=== PATIENT | female | born 1980 | race Caucasian/White ===

== ENCOUNTER 2018-06-26 07:52 | Outpatient (CLI) | payer OTHER ==
[~2018-06-26 07:52] MED LIST: HUMALOG; LANTUS
== END 2018-06-26 09:07 | disposition home or self-care (01) ==
LOC: LAB 07:52
DX: E11.00 Type 2 diabetes mellitus with hyperosmolarity without nonketotic hyperglycemic-hyperosmolar coma (NKHHC) (principal)

== ENCOUNTER → 2018-06-29 | Day surgery (SDC) | payer OTHER | END | disposition home or self-care (01) | LOC: CIR.AMB 05:49 | DX: N80.8 Other endometriosis (principal); N73.6 Female pelvic peritoneal adhesions (postinfective); Z30.2 Encounter for sterilization ==

== ENCOUNTER 2018-08-17 06:19 | Day surgery (SDC) | payer OTHER | END 2018-08-17 17:05 | disposition home or self-care (01) | LOC: CIR.AMB 06:19 | DX: D06.7 Carcinoma in situ of other parts of cervix (principal) ==

== ENCOUNTER 2018-09-22 09:07 | Inpatient (IN) | payer OTHER ==
[~2018-09-22] VITALS: Ht 157.5 cm; Wt 72.6 kg
== END 2018-10-01 10:26 | DRG 741 ==
LOC: ADM 09:30 → EDSTATUS 09:30 → OB/GYN 09-28 06:37 → O/R 09-28 06:37 → SURH 09-28 07:00 → OB/GYN 09-28 11:46
PROVIDERS: ADMIT Obstetrics & Gynecology
PROC: 0UT90ZZ Resection of Uterus, Open Approach (ICD-10-PCS; principal; 2018-09-28 07:00)
DX: D06.0 Carcinoma in situ of endocervix (principal); D25.1 Intramural leiomyoma of uterus

== ENCOUNTER 2018-10-21 22:59 | Inpatient (IN) | payer OTHER ==
[~2018-10-21] VITALS: Ht 157.5 cm; Wt 72.1 kg
--- NOTE | 2018-10-21 23:39 | NUR ---
SE RECIBE PTE ALERT AY ORIENTADA POR KENNY. PTE DE DR. MICHAELS REFIERE QUE SE LE [place] DE [place] DE AREA OELVICA HACE 1 HORA.
--- NOTE | 2018-10-22 01:05 | NUR ---
SE ORIENTA A PTE SOBRE PROCESO DE VENOPUNCION, ROGERS DE MUESTRAS Y CULTIVOS
--- NOTE | 2018-10-22 01:08 | NUR ---
SE ORIENTA A PTE SOBRE PROCESO DE VENOPUNCION, ROGERS DE MUESTRAS Y CULTIVOS, ADMINISTRACION DE MEDICAMENTOS. PTE REFIERE ENTENDER INF AURELIANO POR RN DE TURNO AREA DE VENOPUNCION SE CORINE BREANA DE EDEMA Y ENROJECIMIENTO CON IV FLUID PATENTE.
[2018-10-22] MEDS ORDERED: AMOX-CLAV 875-1 EACH PO (01:11)
[2018-10-22] MEDS ORDERED: HUMALOG100 UNIT/1 SUBCUTANEO (01:13)
[2018-10-22] MEDS ORDERED: LANTUS SOL100 UNIT/1 (01:16)
--- NOTE | 2018-10-22 03:07 | NUR ---
DXT 328 MG/DL, DR KAYLA FERGUSON ADMINISTRAR INSULINA.
--- NOTE | 2018-10-22 07:35 | NUR ---
SE RECIBE PACIENTE ALERTA Y ORIENTADA EN CONSULTA DEL ,ARRERO SE OBSERVA CON IVF PATENTE BREANA D EDEMA , AL MOMENTONO PRESNETA DOLOR SE MANTIENEN OSBERVCAION PO RCMABIOS ENSUCONDICON.
== END 2018-11-05 11:44 | disposition home or self-care (01) | DRG 863 ==
LOC: ER 22:59 → SEC-K 10-22 09:00 → OB/GYN 10-22 09:00
PROVIDERS: ADMIT Obstetrics & Gynecology
PROC: 8E0ZXY6 Isolation (ICD-10-PCS; 2018-10-23)
PROC: BW4GZZZ Ultrasonography of Pelvic Region (ICD-10-PCS; 2018-10-26)
PROC: BW40ZZZ Ultrasonography of Abdomen (ICD-10-PCS; 2018-10-26)
PROC: 0W9G30Z Drainage of Peritoneal Cavity with Drainage Device, Percutaneous Approach (ICD-10-PCS; principal; 2018-10-31)
DX: T81.42XA Infection following a procedure, deep incisional surgical site, initial encounter (principal); L76.34 Postprocedural seroma of skin and subcutaneous tissue following other procedure; B95.2 Enterococcus as the cause of diseases classified elsewhere; E11.9 Type 2 diabetes mellitus without complications; R16.1 Splenomegaly, not elsewhere classified; R87.613 High grade squamous intraepithelial lesion on cytologic smear of cervix (HGSIL); Z79.4 Long term (current) use of insulin

== ENCOUNTER 2018-12-29 14:08 | Inpatient (IN) | payer OTHER ==
[~2018-12-29] VITALS: Ht 157.5 cm; Wt 72.6 kg
[~2018-12-29 14:08] MED LIST changes: +AMOX-CLAV 875-1 EACH PO; +HUMALOG100 UNIT/1 SUBCUTANEO; +LANTUS SOL100 UNIT/1
--- NOTE | 2018-12-29 14:30 | NUR ---
PTE REFIERE COMPLICACION DE LA SIRUGIA REFERIDA POR DR VILLALOBOS SE OBSERVA AZUCAR ELEVADA SE NOTIFICA SE CORINA S/V YSE UBIAC EN AREA DE OBSERVACION
--- NOTE | 2018-12-29 16:37 | NUR ---
SE ORIENTA PTE SOBRE EL TRATAMIENTO ORDENADO POR EL MARYLOU PTE ALERTA Y CONCIENTE POR 3 RN PJANEL REALIZA MUESTRAS DE LABORATORIO Y ADMINISTRA MEDICAMENTO SELWYN ORDEANDO
== END 2019-01-06 16:03 | DRG 863 ==
LOC: ER 14:08 → OB/GYN 18:52 → SEC-K 18:52 → OB/GYN 20:08
PROVIDERS: ADMIT Obstetrics & Gynecology
PROC: 8E0ZXY6 Isolation (ICD-10-PCS; principal; 2018-12-29)
PROC: BW4GZZZ Ultrasonography of Pelvic Region (ICD-10-PCS; 2018-12-29)
PROC: 2W13X6Z Compression of Abdominal Wall using Pressure Dressing (ICD-10-PCS; 2019-01-01)
PROC: BW21Y0Z Computerized Tomography (CT Scan) of Abdomen and Pelvis using Other Contrast, Unenhanced and Enhanced (ICD-10-PCS; 2019-01-02)
DX: T81.49XA Infection following a procedure, other surgical site, initial encounter (principal); B95.2 Enterococcus as the cause of diseases classified elsewhere; E11.65 Type 2 diabetes mellitus with hyperglycemia

== ENCOUNTER 2019-05-03 09:46 | Outpatient (CLI) | payer OTHER | END 2019-05-03 09:57 | disposition home or self-care (01) | LOC: SONOGRAMA 09:46 | DX: R19.00 Intra-abdominal and pelvic swelling, mass and lump, unspecified site (principal) ==

== ENCOUNTER 2020-10-11 06:15 | Day surgery (SDC) | payer OTHER ==
[~2020-10-11 06:15] MED LIST changes: -LANTUS SOL100 UNIT/1; +LANTUS SOL100 UNIT/1 PO; +OZEMPIC0.25 MG/0.
[2020-10-11] MEDS ORDERED: PERCOCET 5-3251 EACH PO (14:32)
== END 2020-10-11 20:00 | disposition home or self-care (01) ==
LOC: CIR.AMB 06:15
PROVIDERS: ATTEND Surgery
DX: L91.0 Hypertrophic scar (principal); Z20.822 Contact with and (suspected) exposure to COVID-19